=== PATIENT | male | born 1995 | race Two or more races ===

== ENCOUNTER 2025-02-18 13:30 | Outpatient (RCR) | payer MEDICAID, SELFPAY ==
--- NOTE | 2025-02-09 08:45 | PTNOTE_ITS ---
PT OP Initial Eval Patient Information Outpatient Physical Therapy Treatment Date: 02/09/25 Visit Reasons: spinal stenosis Medical Diagnosis: M48.061 Treatment Dx #1: LBP with radiculopathy Start of Care: 02/09/25 Date of Onset: 1 yr ago Smoking Status Smoking Status: Never smoker Initial Assessment Subjective: Pt is 29 yr old chinese speaking male who reports LBP that runs down the R LE behind the thigh x1 yr after lifting something heavy. He works in agriculture which causes more pain sometimes. Increased pain with bending and prolonged standing. PMH: none reported Imaging: CT of L/S L4-L5 6 mm central lumbar disc bulge contiguous with the right and left L5 nerve roots Pt goal: to get rid of the pain Objective: ??? Trunk ArOM: ? B SB 50% of normal with pain ? Extension: 20% with pressure around L4-5, L5-S1 ? Flexion: 7 from floor with LBP ? B rotation: 60% ? TTP: moderate paraspinals L5-S1 ? Neuro: B SLR: positive Assessment: ? Pt presents with trunk flexion sensitivity and overlying myofascial pain ? consistent with CT that shows lower lumbar disc bulge(s) with radiculopathy. Pt requires skilled therapy in order to decrease ? pain and improve sitting/standing tolerance and has fair rehab potential. Eval ?followed by HEP printout. Short Term and Pedigree Tracer Goals ? 1. Ind with HEP ? 2. Improved sitting/standing tolerance to 30 minutes with <=4/10 LBP ? 3. Decreased lower paraspinal TTP from mod to min 4. Improved HH chore tolerance to at least 30 minutes with <=3/10 LBP and no ?increase in LE ssx ? Treatment Plan 1. Manual therapy ? 2. Therex ? 3. Modalities as indicated, moist heat, ice, estim, mechanical traction Frequency and Duration: 2x a week for 4 visits per referral then reassess Certification Dates: 02/09/25 to 05/11/25 Procedure Charges OP PT Eval Mod Complex 30 minutes: Yes
--- NOTE | 2025-02-16 11:20 | PT.ODAYNRPT ---
PT Outpatient Daily Note OP Daily Note Outpatient Physical Therapy Treatment Date: 02/16/25 Visit Reasons: spinal stenosis Subjective: Same as time of evaluation Objective: See F/S for therex MT: STM L/S with flexbar x5' Assessment: Increased pressure and discomfort of L/S with prone extension but not increased LE pain Plan: Continue per POC Length of Time (minutes) of Treatment: 30 Minutes Procedure Charges Therapeutic Exercise 30 minutes: Yes
--- NOTE | 2025-02-18 14:11 | PT.ODAYNRPT ---
PT Outpatient Daily Note OP Daily Note Outpatient Physical Therapy Treatment Date: 02/18/25 Visit Reasons: spinal stenosis Subjective: Continued LBP Objective: See F/S for therex Assessment: Increased pressure and discomfort of L/S with prone extension but not increased LE pain Plan: Continue per POC Length of Time (minutes) of Treatment: 30 Minutes Procedure Charges Therapeutic Exercise 30 minutes: Yes
== END 2025-02-18 23:59 | disposition home or self-care (01) ==
LOC: CPTX 13:30
PROVIDERS: PCP Physician Assistant; Referring Provider Physician Assistant; Visit Provider Physician Assistant
DX: M54.16 Radiculopathy, lumbar region (principal); M48.061 Spinal stenosis, lumbar region without neurogenic claudication
CPT/HCPCS: 97110; 97162